=== PATIENT | male | born 1955 | race Caucasian/White ===

== ENCOUNTER 2018-11-18 02:02 | Emergency (ER) | payer OTHER ==
[~2018-11-18] VITALS: Ht 170.2 cm; Wt 83.9 kg
[2018-11-18] MEDS ORDERED: TENORMIN25 MG (02:07)
[2018-11-18] MEDS ORDERED: LISINOPRIL5 MG (02:07)
== END 2018-11-18 12:22 | disposition home or self-care (01) ==
LOC: ER 02:02
DX: K21.9 Gastro-esophageal reflux disease without esophagitis (principal)